=== PATIENT | male | born 1995 | race Two or more races ===

== ENCOUNTER 2017-08-18 19:23 | Observation (INO) | payer MEDICAID ==
[~2017-08-18] VITALS: Ht 175.3 cm; Wt 72.6 kg
[~2017-08-18 19:23] MED LIST: ALBUPOW26
[2017-08-18] MEDS ORDERED: SODIUM CHLORIDE 0.9% 1,000 ML IV ONE (19:45)
[2017-08-18 20:09] LABS: Basophils # (auto) 0 uL; Basophils % (auto) 0.4 % (0.0-2.0); Eosinophils # (auto) 0.1 uL; Eosinophils % (auto) 0.8 % (0.0-7.0); Hematocrit 47.2 % (41.0-53.0); Hemoglobin 16.1 g/dL (13.5-17.5); Lymphocytes # (auto) 4.3 uL; Lymphocytes % (auto) 33.7 % (10.0-50.0); Mean Corpuscular Hemoglobin 30.9 pg (28.0-32.0); Mean Corpuscular Hgb Conc. 34.2 g/dL (32.0-36.0); Mean Corpuscular Volume 90.5 fL (80.0-100.0); Monocytes # (auto) 1.1 uL; Neutrophils # (auto) 7.2 uL; Neutrophils % (auto) 56.1 % (37.0-80.0); Nucleated Red Blood Cells % 0.2 %; Platelet Count (auto) 343 10^3/uL (140-450); Red Blood Cells 5.22 10^6/uL (4.5-5.90); White Blood Cell 12.8 10^3/uL (4.4-10.8)
[2017-08-18 20:28] LABS: Acetaminophen < 2.0 ug/mL (10-30); Alanine Aminotransferase 18 U/L (16-61); Albumin 4.5 g/dL (3.4-5.0); Alkaline Phosphatase 61 U/L (45-117); Anion Gap 12 (5-15); Aspartate Aminotransferase 21 U/L (15-37); BUN/Creatinine Ratio 12.9; Bilirubin, Total 1.3 mg/dL (0.2-1.0); Blood Alcohol < 3.0 mg/dL (0-5); Blood Urea Nitrogen 16 mg/dL (7-18); Calcium 9.6 mg/dL (8.5-10.1); Carbon Dioxide 25 mmol/L (21-32); Chloride 106 mmol/L (98-107); GFR African American 93 mL/min; GFR Non-African American 77 mL/min; Glucose 73 mg/dL (74-106); Potassium 3.8 mmol/L (3.5-5.1); Salicylate < 1.7 mg/dL (2.8-20.0); Sodium 143 mmol/L (136-145); Total Protein 8.7 g/dL (6.4-8.2)
[2017-08-18 21:19] LABS: Alcohol, Urine < 3.0 mg/dL (0-5); Amphetamine Screen, Urine NEGATIVE (NEGATIVE); Barbiturate Scree,Urine NEGATIVE (NEGATIVE); Benzodiazephine Screen, Urine NEGATIVE (NEGATIVE); Cannabinoid Screen, Urine POSITIVE (NEGATIVE); Cocaine Screen, Urine NEGATIVE (NEGATIVE); Opiate Scree,Urine NEGATIVE (NEGATIVE); Phencyclidine Screen, Urine NEGATIVE (NEGATIVE)
[2017-08-18 21:23] LABS: Urine Bacteria NONE SEEN /hpf (None Seen); Urine Blood Negative /uL (Negative); Urine Specific Gravity 1.006 (1.001-1.035); Urine WBC <1 /hpf (0 - 3)
[2017-08-19] MEDS ORDERED: LORazepam 0.5 MG TAB PO ONE (13:45)
[2017-08-19] MEDS: OLANZapine 5 MG TAB PO ONE (13:45)
[2017-08-20] MEDS: OLANZapine 5 MG TAB PO ONE (09:03)
[2017-08-20] MEDS ORDERED: OLANZapine 5 MG TAB PO ONE (11:30)
[2017-08-20] MEDS ORDERED: CYCLOBENZAPRINE HCL 10 MG TAB PO ONE (20:45)
[2017-08-20] MEDS ORDERED: ACETAMINOPHEN/CODEINE#3 (300/30mg) TAB PO ONE (21:00)
[2017-08-21] MEDS ORDERED: LORazepam 0.5 MG TAB PO PRN (10:15)
[2017-08-21] MEDS ORDERED: ACETAMINOPHEN 325 MG TAB PO PRN (10:15)
[2017-08-21] MEDS ORDERED: LORazepam 0.5 MG TAB ONE (10:20)
[2017-08-21] MEDS ORDERED: ACETAMINOPHEN 325 MG TAB PO ONE (10:21)
[2017-08-21] MEDS ORDERED: OLANZapine 5 MG TAB ONE (10:21)
[2017-08-21] MEDS ORDERED: OLANZapine 5 MG TAB PO SCH (10:30)
[2017-08-22 07:03] VITALS: BP 124/62
== END 2017-08-22 10:20 | disposition home or self-care (01) | DRG 751 ==
LOC: ER 19:23 → OVERFLOW 19:24 → ER 08-22 10:20
PROVIDERS: ADMIT Emergency Medicine; ATTEND Emergency Medicine
DX: F29 Unspecified psychosis not due to a substance or known physiological condition (principal); F32.9 Major depressive disorder, single episode, unspecified; F41.9 Anxiety disorder, unspecified; T43.3X2A Poisoning by phenothiazine antipsychotics and neuroleptics, intentional self-harm, initial encounter; Y92.89 Other specified places as the place of occurrence of the external cause; Z82.49 Family history of ischemic heart disease and other diseases of the circulatory system; Z91.5 Personal history of self-harm; Z83.3 Family history of diabetes mellitus
CPT/HCPCS: 36415; 80053; 80307; 80320; 80329; 81001; 85025; 93005; 96360; 99285; G0378

== ENCOUNTER 2020-06-28 11:48 | Emergency (ER) | payer MEDICAID ==
[2020-06-28 12:16] VITALS: BP 115/79
[2020-06-28] MEDS ORDERED: cefTRIAXone SOD 1,000 MG VL IM ONE (12:45)
[2020-06-28] MEDS ORDERED: PROMETHAZINE HCL 25 MG/ML 1ML IM ONE (12:45)
== END 2020-06-28 13:56 | disposition home or self-care (01) ==
LOC: ER 11:48
DX: U07.1 COVID-19 (principal); J03.90 Acute tonsillitis, unspecified; F41.9 Anxiety disorder, unspecified; F32.9 Major depressive disorder, single episode, unspecified
CPT/HCPCS: 71045; 96372; 99284; J0696; J2550

== ENCOUNTER 2021-08-01 14:34 | Emergency (ER) | payer MEDICAID ==
[~2021-08-01] VITALS: Ht 175.3 cm; Wt 95.3 kg
[2021-08-01 15:00] VITALS: BP 130/75
[2021-08-01] MEDS ORDERED: ACETAMINOPHEN 500 MG TAB PO ONE (15:45)
[2021-08-01] MEDS ORDERED: IBUP800T27 PO (15:54)
[2021-08-01] MEDS ORDERED: METH750T22 PO (15:54)
== END 2021-08-01 16:04 | disposition home or self-care (01) ==
LOC: ER 14:34
DX: S16.1XXA Strain of muscle, fascia and tendon at neck level, initial encounter (principal); S80.12XA Contusion of left lower leg, initial encounter; R51.9 Headache, unspecified; V43.52XA Car driver injured in collision with other type car in traffic accident, initial encounter; Y93.89 Activity, other specified; Y92.488 Other paved roadways as the place of occurrence of the external cause; Y99.8 Other external cause status
CPT/HCPCS: 70450; 73590

== ENCOUNTER 2024-08-20 13:38 | Emergency (ER) | payer MEDICAID ==
[~2024-08-20] VITALS: Ht 177.8 cm; Wt 121.3 kg
[~2024-08-20 13:38] MED LIST changes: +IBUP-1456 PO; +METH-1182 PO
--- NOTE | 2024-08-20 14:32 | DVH ---
Exam: CT CT AB PEL WO CON-NO ORAL OR IV History: abd pain n/v h/o sbo Comparison Study: None available at time of dictation. TECHNIQUE: Multidetector CT of the abdomen was performed from lung bases to pubic symphysis. Imaging was performed without IV contrast. Axial, coronal and sagittal multiplanar reformats were obtained fr om the axial data set by the technologist. Radiation Dose Information: CT Dose: CTDI volume is 23.52 mGy. Dose-length product is 1317.91 mGy*cm FINDINGS: Evaluation of solid organs is limited due to lack of intravenous contrast use. Findings: Lung Bases: No acute or significant lung base finding. Normal heart size. No pleural or pericardial effusion. Liver: The liver is normal in size. No focal lesions. Gallbladder and Biliary Tree: Unremarkable Spleen: Unremarkable Pancreas: The pancreas is grossly normal in appearance. Adrenal Glands: Unremarkable Kidneys: Punctate calculus left kidney no hydronephrosis punctate calculus lower pole right kidney no hydronephrosis Bladder: Grossly unremarkable for degree of distention. Bowel: The stomach is grossly normal in appearance. Small bowel and colon are normal in caliber and d istribution. The appendix is not visualized; however, no secondary findings of acute appendicitis id entified. Ascites: Absent Lymphadenopathy: No mesenteric, retroperitoneal or periportal lymphadenopathy. Abdominal Wall and Mesentery: Unremarkable. Vasculature: The visualized abdominal aorta is normal in size and caliber. Evaluation of abdominal a nd pelvic vessels is limited due to lack of intravenous contrast. Pelvic Organs: Unremarkable Musculoskeletal: No aggressive focal bony lesions, acute fractures or dislocation. Soft tissues: Unremarkable IMPRESSION: 1. Punctate nonobstructing renal calculi bilaterally. 2. No findings of bowel obstruction 3. No cholelithiasis gallbladder is not dilated. Radiation optimization: All CT scans at this facility use at least one of these dose optimization rocky hniques: automated exposure control mA and/or kV adjustment per patient size (includes targeted exam s where dose is matched to clinical indication) or iterative reconstruction.
--- NOTE | 2024-08-20 14:58 | ED.PDOC ---
GI ASSESSMENT HPI Comments 29 y.o male present to the ED for a chief complaint of diffuse abdominal pain associated with nausea and vomiting that started earlier today. Patient describes pain as sharp, constant and has no alleviating or precipitating factors. Patient reports similar pain on November 2023, was diagnosed with an enlarged intestine but unsure of final diagnosis. Patient denies any diarrhea, states he had a normal soft bowel movement this morning. He also denies fever, chills, hematuria, dysuria, or rectal bleeding. Chief Complaint: Abdominal Pain Time Seen by MD: 13:55 Primary Care Provider: NONE Reviewed Notes: Nurses Notes, Medications, Allergies Allergies: Coded Allergies: NO KNOWN ALLERGIES (Unverified , 11/03/10) Home Meds Active Scripts Methocarbamol (Methocarbamol) 750 Mg Tab, 750 MG PO QHSP PRN for 20 Days, #20 TAB Prov:GREG SUTHERLAND 08/01/21 Ibuprofen (Ibuprofen) 800 Mg Tab, 800 MG PO TID PRN for 10 Days, #30 TAB Prov:GREG SUTHERLAND 08/01/21 Reported Medications Albuterol (Albuterol) Pow 11/03/10 Information Source: Patient Mode of Arrival: Ambulatory Timing: Hours Duration: Since onset Quality: Sharp Vomitus: Hard Stool: Normal Severity: Moderate Recent: None Recent Hx of: None Pain Location: Diffuse Associated sign and symptoms: Nausea, Vomiting, Abdominal Pain Past Medical History PAST MEDICAL HISTORY: Anxiety, Depression Surgical History: Denies all surgeries Family History Family History: Reviewed,noncontributory to illness, No family hx of DM, No family hx of HTN Social History Smoker: Non-Smoker Alcohol: Denies ETOH Use Drugs: Denies Drug Use Lives In: Home Constitutional: denies: chills, diaphoresis, fatigue, fever, malaise, sweats, weakness, others EENTM: denies: blurred vision, double vision, ear bleeding, ear discharge, ear drainage, ear pain, ear ringing, eye pain, eye redness, hearing loss, mouth pain, mouth swelling, nasal discharge, nose bleeding, nose congestion, nose pain, photophobia, tearing, throat pain, throat swelling, voice changes, others Respiratory: denies: cough, hemoptysis, orthopnea, SOB at rest, shortness of breath, SOB with excertion, stridor, wheezing, others Cardiovascular: denies: chest pain, dizzy spells, diaphoresis, Dyspnea on exertion, edema, irregular heart beat, left arm pain, lightheadedness, palpitations, PND, syncope, others Gastrointestinal: reports: abdominal pain, nausea, vomiting; denies: abdomen distended, blood streaked bowels, constipated, diarrhea, dysphagia, difficulty swallowing, hematemesis, melena, poor appetite, poor fluid intake, rectal bleeding, rectal pain, others Genitourinary: denies: burning, dysuria, flank pain, frequency, hematuria, incontinence, penile discharge, penile sore, pain, testicle pain, testicle swelling, urgency, others Neurological: denies: dizziness, fainting, headache, left sided numbness, left sided weakness, numbness, paresthesia, pre-existing deficit, right sided numbness, right sided weakness, seizure, speech problems, tingling, tremors, weakness, others Musculoskeletal: denies: back pain, gout, joint pain, joint swelling, muscle pain, muscle stiffness, neck pain, others Integumetry: denies: bruises, change in color, change in hair/nails, dryness, laceration, lesions, lumps, rash, wounds, others Allergic/Immunocompromised: denies: Difficulty Healing, Frequent Infections, Hives, Itching, others Hematologic/Lymphatic: denies: anemia, blood clots, easy bleeding, easy bruising, swollen glands, others Endocrine: denies: excessive hunger, excessive sweating, excessive thirst, excessive urination, flushing, intolerance to cold, intolerance to heat, une xplained weight gain, unexplained weight loss, others Psychiatric: denies: anxiety, bipolar disorder, depression, hopeless, panic disorder, schizophrenia, sleepless, suicidal, others All Other Systems: Reviewed and Negative Physical Exam General Appearance: No Apparent Distress HEENT: Other (Moist Mucous membranes, face and pupils symmetric) Neck: Full Range of Motion, Normal Inspection Respiratory: Lungs Clear, No Accessory Muscle Use, No Respiratory Distress, Normal Breath Sounds Cardiovascular: No Edema, No JVD, Regular Rate/Rhythm Breast Exam: Deferred Gastrointestinal: Diffuse, Distended (Mild), Soft, Tenderness Genitalia: Deferred Pelvic: Deferred Rectal: Deferred Extremities: Normal inspection, Normal range of motion, Non-tender, No pedal edema Neurologic: Alert (Oriented x4), Normal Affect, Normal Mood, Other (Ambulatory without difficulty. No gross focal deficit.) Cerebellar Function: NOT DONE Reflexes: NOT DONE Skin: Dry, Normal Color, Warm Lymphatic: NOT DONE Was a procedure done? Was a procedure done?: No GI differential Dx Differential Diagnosis: Bowel Obstruction, Constipation, Diverticular disease, Esophagitis, Gastritis/PUD, Gastroenteritis, Hepatitis, Inflammatory BD, Ischemic Bowel, Pancreatitis, UTI, Dehydration, Electrolyte Imbalance, Food Poisoning, Bacterial, Viral, Impaction, Renal Failure, Stress Ulcer X-Ray, Labs, Meds, VS Vital Signs Date Time Temp Pulse Resp B/P (MAP) Pulse Ox O2 Delivery O2 Flow Rate FiO2 08/20/24 18:14 97.7 63 16 120/66 (84) 97 97.7 08/20/24 15:54 70 17 129/80 08/20/24 15:28 78 16 98 Room Air* 0 21 08/20/24 15:28 98.4 78 16 117/83 (94) 98 98.4 08/20/24 15:24 78 18 106/69 08/20/24 14:01 98.0 87 18 124/74 (91) 97 Lab Test 08/20/24 17:00 08/20/24 14:46 Range/Units Urine Color Light-yellow Yellow Urine Clarity Clear Clear Urine pH 5.5 5.0-9.0 Urine Specific [place] 1.019 1.001-1.035 Urine Protein Negative Negative Urine Ketones Negative Negative Urine Blood Negative Negative /uL Urine Nitrite Negative Negative Urine Bilirubin Negative Negative Urine Urobilinogen Normal Negative mg/dL Urine Leukocyte Esterase Negative Negative /uL Urine RBC 1 0 - 3 /hpf Urine Microscopic WBC 2 0-3 /HPF Urine Squamous Epithelial Cells None seen <5 /hpf Urine Bacteria None seen None Seen /hpf Urine Mucus Few None Seen Urine Glucose Normal Normal mg/dL White Blood Count 12.3 H 4.4-10.8 10^3/uL Red Blood Count 4.86 4.5-5.90 10^6/uL Hemoglobin 14.1 13.5-17.5 g/dL Hematocrit 42.0 41.0-53.0 % Mean Corpuscular Volume 86.6 80.0-100.0 fL Mean Corpuscular Hemoglobin 28.9 28.0-32.0 pg Mean Corpuscular Hemoglobin Concent 33.4 32.0-36.0 g/dL Red Cell Distribution Width 13.7 11.8-14.3 % Platelet Count 304 140-450 10^3/uL Mean Platelet Volume 8.0 6.9-10.8 fL Neutrophils (%) (Auto) 61.1 37.0-80.0 % Lymphocytes (%) (Auto) 29.8 10.0-50.0 % Monocytes (%) (Auto) 7.4 0.0-12.0 % Eosinophils (%) (Auto) 1.2 0.0-7.0 % Basophils (%) (Auto) 0.5 0.0-2.0 % Neutrophils # (Auto) 7.5 1.6-8.6 10 ^3/uL Lymphocytes # (Auto) 3.7 0.4-5.4 10 ^3/uL Monocytes # (Auto) 0.9 0-1.3 10 ^3/uL Eosinophils # (Auto) 0.1 0-0.8 10 ^3/uL Basophils # (Auto) 0.1 0-0.2 10 ^3/uL Nucleated Red Blood Cells 0.1 % Sodium Level 141 136-145 mmol/L Potassium Level 3.8 3.5-5.1 mmol/L Chloride Level 106 98-107 mmol/L Carbon Dioxide Level 27 20-31 mmol/L Anion Gap 8 5-15 Blood Urea Nitrogen 13 9-23 mg/dL Creatinine 0.97 0.700-1.30 mg/dL Glomerular Filtration Rate Calc 108 >90 mL/min BUN/Creatinine Ratio 13.4 10.0-20.0 Serum Glucose 86 74-106 mg/dL Lactic Acid Level 0.7 0.4-2.0 mmol/L Calcium Level 10.1 8.7-10.4 mg/dL Total Bilirubin 0.5 0.2-1.0 mg/dL Aspartate Amino Transferase (AST) 39 13-40 U/L Alanine Aminotransferase (ALT) 56 H 7-40 U/L Alkaline Phosphatase 69 46-116 U/L Total Protein 7.5 5.7-8.2 g/dL Albumin 4.8 3.2-4.8 g/dL Lipase 51 12-53 U/L Current Medications Medications (Trade) Dose Ordered Sig/Hong Route Start Time Stop Time Status Last Admin Sodium Chloride 1,000 ml @ 1,000 mls/hr Q1H ONCE IV 2/23/25 14:00 08/20/24 14:59 DC 08/20/24 15:21 Morphine Sulfate 4 mg ONCE ONCE IV 08/20/24 14:00 08/20/24 14:01 DC 08/20/24 15:24 Ondansetron HCl (Zofran) 4 mg ONCE ONCE IV 08/20/24 14:00 08/20/24 14:01 DC 08/20/24 15:23 [place] [id number] Ph: [phone] DIAGNOSTIC IMAGING Diagnostic Imaging Report : [id number] Signed PATIENT: KATE PATEL ACCT: [id number] UNIT: [id number] : 1995 LOC: ER ROOM / BED: / AGE / SEX: 29 / M ADM STATUS: REG ER SERVICE [id number] ORDERING PHYSICIAN: MARQUIS HADLEY MD PROCEDURE(s): ABPL - CT AB PEL WO CON-NO ORAL OR IV REASON: abd pain n/v h/o sbo ORDER NUMBER(s): [id number], ACCESSION NUMBER(s): [id number] Exam: CT CT AB PEL WO CON-NO ORAL OR IV History: abd pain n/v h/o sbo Comparison Study: None available at time of dictation. TECHNIQUE: Multidetector CT of the abdomen was performed from lung bases to pubic symphysis. Imaging was performed without IV contrast. Axial, coronal and sagittal multiplanar reformats were obtained from the axial data set by the technologist. Radiation Dose Information: CT Dose: CTDI volume is 23.52 mGy. Dose-length product is 1317.91 mGy*cm FINDINGS: Evaluation of solid organs is limited due to lack of intravenous contrast use. Findings: Lung Bases: No acute or significant lung base finding. Normal heart size. No pleural or pericardial effusion. Liver: The liver is normal in size. No focal lesions. Gallbladder and Biliary Tree: Unremarkable Spleen: Unremarkable Pancreas: The pancreas is grossly normal in appearance. Adrenal Glands: Unremarkable Kidneys: Punctate calculus left kidney no hydronephrosis punctate calculus lower pole right kidney no hydronephrosis Bladder: Grossly unremarkable for degree of distention. Bowel: The stomach is grossly normal in appearance. Small bowel and colon are normal in caliber and distribution. The appendix is not visualized; however, no secondary findings of acute appendicitis identified. Ascites: Absent Lymphadenopathy: No mesenteric, retroperitoneal or periportal lymphadenopathy. Abdominal Wall and Mesentery: Unremarkable. Vasculature: The visualized abdominal aorta is normal in size and caliber. Evaluation of abdominal and pelvic vessels is limited due to lack of intravenous contrast. Pelvic Organs: Unremarkable Musculoskeletal: No aggressive focal bony lesions, acute fractures or dislocation. Soft tissues: Unremarkable IMPRESSION: 1. Punctate nonobstructing renal calculi bilaterally. 2. No findings of bowel obstruction 3. No cholelithiasis gallbladder is not dilated. Radiation optimization: All CT scans at this facility use at least one of these dose optimization techniques: automated exposure control mA and/or kV adjustment per patient size (includes targeted exams where dose is matched to clinical indication) or iterative reconstruction. ATED BY: JUSTIN CEVALLOS Jr., DO DICTATED DATE/TIME: 08/20/24 1430 SIGNED BY: JUSTIN CEVALLOS Jr., SIGNED DATE/TIME: 08/20/24 143 CC: X-Ray, Labs, Meds, VS Comment 29-year-old male with a history of anxiety and depression complaining of abdominal pain, nausea and vomiting Vitals unremarkable Exam unremarkable Rhythm strip independently interpreted by me: Sinus rhythm, rate 87, no ectopy. CT abdomen and pelvis: IMPRESSION: 1. Punctate nonobstructing renal calculi bilaterally. 2. No findings of bowel obstruction 3. No cholelithiasis gallbladder is not dilated. CBC remarkable for WBC 12.3, metabolic panel unremarkable, lipase normal, lactate normal, UA unremarkable Patient treated with the following in the ED: 1 L 0.9 normal saline IV bolus, morphine 4 mg IV, Zofran 4 mg IV On re-evaluation, patient states pain has improved. Vitals were stable. Repeat abdominal exam was benign. He tolerated p.o. fluids. Hospitalization was considered, however patient had rapid improvement of symptoms with treatment in the ED, and I no longer feel hospitalization is necessary. Patient now appears stable for discharge with close outpatient follow-up with his primary physician for referral to a lands resource manager. Rx omeprazole, Bentyl, Zofran Time of 1ST Reevaluation: 14:53 Reevaluation 1ST: Unchanged Patient Education/Counseling: Diagnosis, Treatment, Prognosis Family Education/Counseling: No Family Present Departure 1 Departure Time of Disposition: 19:49 Impression: Primary Impression: Abdominal pain Qualified Codes: R10.9 - Unspecified abdominal pain Additional Impression: Nausea & vomiting Qualified Codes: R11.2 - Nausea with vomiting, unspecified Disposition: HOME / SELF CARE / HOMELESS Condition: Stable Additional Instructions: Your blood and urine tests were unremarkable. Your CT scan was unremarkable for any abnormality that would explain your symptoms. I have prescribed pain medication, medication for nausea and vomiting. Follow-up with your primary doctor in 1-2 days for referral to a lands resource manager for further evaluation of your symptoms. Alternatively, follow-up with Dr. Pope. e-Prescriptions Dicyclomine Hcl (BENTYL CAPSULE) 10 Mg Cp 2 CAP PO Q6HP PRN, #30 CAP 11 Refills prn abdominal pain Prov: MARQUIS HADLEY MD 08/20/24 Omeprazole Magnesium (Omeprazole) 20 Mg Tab 20 MG PO DAILY, #30 TAB Prov: MARQUIS HADLEY MD 08/20/24 Ondansetron Odt 4MG Tab (ZOFRAN PO) 4 Mg Tb 4 MG PO TID PRN, #30 TAB prn n/v ODT TAB-DISSOLVE IN MOUTH, THEN SWALLOW Prov: MARQUIS HADLEY MD 08/20/24 Discharged With: Relative Critical Care Note Critical Care Time?: No Stability Stability form required: No Heart Score Heart Score: Heart Score Response (Comments) Value History N/A 0 EKG N/A 0 Age N/A 0 Risk Factors N/A 0 Troponin N/A 0 Total 0 I personally scribed for MARQUIS HADLEY MD ([email or web address]) on 08/20/24 at 14:58. Electronically submitted by Ju Fuentes ([facility]). I personally scribed for MARQUIS HADLEY MD ([email or web address]) on 08/20/24 at 15:06. Electronically submitted by Ju Fuentes ([facility]). MARQUIS HADLEY MD Aug 20, 2024 14:58
[2024-08-20] MEDS: SODIUM CHLORIDE 0.9% 1,000 ML IV ONE (15:21)
[2024-08-20] MEDS: ONDANSETRON HCL 4 MG/2 ML VIAL IV ONE (15:23)
[2024-08-20] MEDS: MORPHINE SULFATE 4 MG/ML SYR/VIAL IV ONE (15:24)
[2024-08-20 15:28] VITALS: PULSE 78; RESP 16; O2SAT 98
[2024-08-20 15:33] LABS: Alkaline Phosphatase 69 U/L (46-116); Anion Gap 8 (5-15); Aspartate Aminotransferase 39 U/L (13-40); BUN/Creatinine Ratio 13.4 (10.0-20.0); Basophils # (auto) 0.1 10 ^3/uL (0-0.2); Basophils % (auto) 0.5 % (0.0-2.0); Bilirubin, Total 0.5 mg/dL (0.2-1.0); Blood Urea Nitrogen 13 mg/dL (9-23); Calcium 10.1 mg/dL (8.7-10.4); Carbon Dioxide 27 mmol/L (20-31); Chloride 106 mmol/L (98-107); Eosinophils # (auto) 0.1 10 ^3/uL (0-0.8); Eosinophils % (auto) 1.2 % (0.0-7.0); Glucose 86 mg/dL (74-106); Hemoglobin 14.1 g/dL (13.5-17.5); Lipase 51 U/L (12-53); Lymphocytes # (auto) 3.7 10 ^3/uL (0.4-5.4); Lymphocytes % (auto) 29.8 % (10.0-50.0); Mean Corpuscular Hemoglobin 28.9 pg (28.0-32.0); Mean Corpuscular Hgb Conc. 33.4 g/dL (32.0-36.0); Mean Corpuscular Volume 86.6 fL (80.0-100.0); Monocytes # (auto) 0.9 10 ^3/uL (0-1.3); Monocytes % (auto) 7.4 % (0.0-12.0); Neutrophils # (auto) 7.5 10 ^3/uL (1.6-8.6); Neutrophils % (auto) 61.1 % (37.0-80.0); Nucleated Red Blood Cells % 0.1 %; Platelet Count (auto) 304 10^3/uL (140-450); Potassium 3.8 mmol/L (3.5-5.1); Red Blood Cells 4.86 10^6/uL (4.5-5.90); Red Cell Distribution Width 13.7 % (11.8-14.3); Sodium 141 mmol/L (136-145); Total Protein 7.5 g/dL (5.7-8.2); White Blood Cell 12.3 10^3/uL (4.4-10.8)
[2024-08-20 15:38] LABS: Alanine Aminotransferase 56 U/L (7-40); Albumin 4.8 g/dL (3.2-4.8)
[2024-08-20 17:27] LABS: Urine Bacteria None Seen /hpf (None Seen)
[2024-08-20 17:36] LABS: Urine Blood Negative /uL (Negative); Urine Clarity Clear (Clear); Urine Color Light-Yellow (Yellow); Urine Mucus FEW (None Seen); Urine Protein, UAD Negative (Negative); Urine Specific Gravity 1.019 (1.001-1.035); Urine Squamous Epithelial Cell None Seen /hpf (<5); Urine Urobilinogen Normal (Negative); Urine WBC 2 /HPF (0-3); Urine pH 5.5 (5.0-9.0)
[2024-08-20] MEDS ORDERED: DICY10CA PO (19:55)
[2024-08-20] MEDS ORDERED: OMEP-434 PO (19:55)
[2024-08-20] MEDS ORDERED: ZOFR4T PO (19:55)
[2024-08-20 20:26] VITALS: BP 132/74; PULSE 68; RESP 18; TEMP 98; O2SAT 95
== END 2024-08-20 20:41 | disposition home or self-care (01) ==
LOC: ER 13:38
DX: R10.84 Generalized abdominal pain (principal); R11.2 Nausea with vomiting, unspecified; Z79.899 Other long term (current) drug therapy
CPT/HCPCS: 36415; 74176; 80053; 81001; 83605; 83690; 85025; 96361; 96374; 96375; 99285; J2270; J2405; J7030